=== PATIENT | male | born 2000 | race Hispanic/Latino ===

== ENCOUNTER 2020-08-14 20:01 | Emergency (ER) | payer SELFPAY ==
[~2020-08-14] VITALS: Ht 170.2 cm; Wt 83.0 kg
[2020-08-14] MEDS ORDERED: ONDANSETRON HCL INJ 2MG/ML 2ML 2 MG/ML VIAL IV STA (20:14)
[2020-08-14] MEDS ORDERED: MAGNESIUM/ALUMINUM/SIMETHICONE 30 ML UDC PO ONE (20:15)
[2020-08-14] MEDS ORDERED: LIDOCAINE VISC 2% SOLN 15 ML UDC PO ONE (20:15)
[2020-08-14] MEDS ORDERED: LIDOCAINE VISC 2% SOLN 15 ML UDC ONE (20:32)
[2020-08-14] MEDS ORDERED: ONDANSETRON HCL INJ 2MG/ML 2ML 2 MG/ML VIAL ONE (20:33)
[2020-08-14] MEDS ORDERED: MAGNESIUM/ALUMINUM/SIMETHICONE 30 ML UDC ONE (20:33)
[2020-08-14] MEDS ORDERED: ZOFRAN4 MG SL (21:45)
[2020-08-14] MEDS ORDERED: PREVACID30 MG PO (21:45)
== END 2020-08-14 22:08 | disposition home or self-care (01) ==
LOC: FSED 20:30
DX: R10.9 Unspecified abdominal pain (principal); R11.2 Nausea with vomiting, unspecified; F17.210 Nicotine dependence, cigarettes, uncomplicated
CPT/HCPCS: 74176; 99284; J2405

== ENCOUNTER 2024-06-14 10:45 | Observation (INO) | payer SELFPAY ==
[2024-06-14] VITALS (7 sets, daily range): BP systolic 116–154; BP diastolic 63–75; PULSE 65–96; RESP 16–18; TEMP 98–99.4; O2SAT 97–100
[~2024-06-14] VITALS: Ht 170.2 cm; Wt 83.0 kg
[~2024-06-14 10:45] MED LIST: BACITRACIN15 GM TOP; CILOXAN3.5 GM OS; PREVACID30 MG PO; ZOFRAN4 MG SL
[2024-06-14] MEDS: SODIUM CHLORIDE 0.9% 1000ML 1,000 ML IV ONE ×2 (11:12)
[2024-06-14] MEDS: ONDANSETRON HCL INJ 2MG/ML 2ML 2 MG/ML VIAL IV STA (11:12)
[2024-06-14] MEDS: KETOROLAC TROMETHAMINE 30 MG/ML VIAL IV STA (11:12)
[2024-06-14] MEDS ORDERED: KETOROLAC TROMETHAMINE 30 MG/ML VIAL ONE (11:14)
[2024-06-14] MEDS ORDERED: SODIUM CHLORIDE 0.9% 1000ML 1,000 ML ONE (11:14)
[2024-06-14] MEDS ORDERED: IOPAMIDOL 370 MG/ML 100 ML INFUS..BTL INJ ONE (12:00)
[2024-06-14] MEDS ORDERED: FENTANYL CITRATE/PF 100MCG/2 ML INJ ONE (12:31)
[2024-06-14] MEDS ORDERED: Morphine 10mg syringe 10 MG/ML INJ ONE (12:31)
[2024-06-14] MEDS ORDERED: PIPERACILLIN/TAZOBACTAM 3.375 GM VIAL ONE (12:44)
[2024-06-14] MEDS ORDERED: SODIUM CHLORIDE 0.9% 100 ML ONE (12:44)
[2024-06-14] MEDS ORDERED: BUPIVACAINE HCL 0.5% INJ 30 ML VIAL INJ ONE (15:38)
[2024-06-14] MEDS ORDERED: NO HOME MEDS (16:44)
[2024-06-14] MEDS ORDERED: SUGAMMADEX SODIUM 200 MG/2 ML VIAL IV ONE (16:51)
[2024-06-14] MEDS: Morphine 4mg INJECTION 4 MG/ML INJ IV PRN (18:49)
[2024-06-15 00:54] VITALS: BP_SYST 115; BP_SYST 124; BP_DIAS 65; BP_DIAS 81; PULSE 115; PULSE 80; RESP 16; RESP 20; TEMP 98; TEMP 98.4; O2SAT 100; O2SAT 99
[2024-06-15 06:27] VITALS: BP 128/61; PULSE 82; RESP 19; TEMP 98.2; O2SAT 99
[2024-06-15 08:18] VITALS: BP 129/55; PULSE 69; RESP 18; TEMP 98.4; O2SAT 98
[2024-06-15 08:29] VITALS: BP 129/55; PULSE 69; RESP 18; TEMP 98.4; O2SAT 100
[2024-06-15] MEDS: ONDANSETRON HCL INJ 2MG/ML 2ML 2 MG/ML VIAL IV PRN (09:02)
[2024-06-15 12:17] VITALS: BP 146/62; PULSE 97; RESP 19; TEMP 98.6; O2SAT 97
[2024-06-15 14:43] LABS: BASOPHILS % 0.2 % (0.0-1.0); EOSINOPHILS % 0.2 % (0.0-6.0); HEMATOCRIT 41.7 % (38.2-49.6); HEMOGLOBIN 13.7 g/dL (14.0-18.0); LYMPHOCYTES # (AUTO) 2.1 (1.0-3.2); LYMPHOCYTES % 10.4 % (18.0-39.1); MEAN CORPUSCULAR HEMOGLOBIN 30.8 pg (28-32); MEAN CORPUSCULAR HGB CONC 32.9 g/dL (31-35); MEAN CORPUSCULAR VOLUME 93.7 fL (81-99); MONOCYTES # (AUTO) 1.2 (0.2-0.8); MONOCYTES % 5.9 % (4.4-11.3); NEUTROPHILS # (AUTO) 16.3 (2.1-6.9); NEUTROPHILS % 82.8 % (38.7-80.0); PLATELET COUNT 248 x10e3/uL (140-360); RED BLOOD COUNT 4.45 x10e6/uL (4.3-5.7); RED CELL DISTRIBUTION WIDTH 12.3 % (11.7-14.4); WHITE BLOOD COUNT 19.65 x10e3/uL (4.8-10.8)
[2024-06-15 15:00] LABS: ALBUMIN 3.8 g/dL (3.5-5.0); ALBUMIN/GLOBULIN RATIO 1.2 (0.8-2.0); BILIRUBIN,TOTAL 0.8 mg/dL (0.2-1.2); CALCIUM 9.6 mg/dL (8.4-10.2); CREATININE, SERUM 0.98 mg/dL (0.72-1.25)
[2024-06-15] MEDS ORDERED: ACETAMINOPHEN-1 EAC4 PO (15:27)
[2024-06-15] MEDS ORDERED: ONDANSETRON ODT4 MG PO (15:27)
[2024-06-15] MEDS ORDERED: BACTRIM DS TAB1 EACH PO (15:27)
[2024-06-15 16:46] VITALS: BP 137/55; PULSE 86; RESP 19; TEMP 98.8; O2SAT 100
== END 2024-06-15 15:52 | disposition home or self-care (01) ==
LOC: FSED 10:57 → ERHOLD 12:43 → MED/SURG3 14:00
PROVIDERS: ADMIT Internal Medicine; ATTEND Internal Medicine
DX: K35.80 Unspecified acute appendicitis (principal); S05.02XA Injury of conjunctiva and corneal abrasion without foreign body, left eye, initial encounter; X58.XXXA Exposure to other specified factors, initial encounter
CPT/HCPCS: 36415; 44970; 74177; 80053 ×2; 81003; 85025 ×2; 88304; 99284; G0378 ×2; J1885; J2270 ×3; J2405 ×2; J2543; J3010; J7030; J7050; Q9967

== ENCOUNTER 2024-07-31 20:55 | Emergency (ER) | payer SELFPAY ==
[~2024-07-31] VITALS: Ht 167.6 cm; Wt 90.7 kg
[~2024-07-31 20:55] MED LIST changes: +ACETAMINOPHEN-1 EAC4 PO; +BACTRIM DS TAB1 EACH PO; +NO HOME MEDS; +ONDANSETRON ODT4 MG PO
[2024-07-31 21:09] VITALS: PULSE 87; RESP 18; TEMP 97.9
[2024-07-31] MEDS ORDERED: ULTRAM 50MG50 MG PO (21:20)
[2024-07-31] MEDS ORDERED: AZITHROMYCIN250 MG PO (21:20)
[2024-07-31 21:30] VITALS: BP 131/60; PULSE 87; RESP 18; TEMP 97.9; O2SAT 97
== END 2024-07-31 21:30 | disposition home or self-care (01) ==
LOC: FSED 21:00
DX: H66.92 Otitis media, unspecified, left ear (principal); H61.21 Impacted cerumen, right ear
CPT/HCPCS: 99282

== ENCOUNTER 2024-11-04 12:18 | Emergency (ER) | payer SELFPAY ==
[~2024-11-04] VITALS: Ht 167.6 cm; Wt 90.7 kg
[~2024-11-04 12:18] MED LIST changes: +AZITHROMYCIN250 MG PO; +ULTRAM 50MG50 MG PO
[2024-11-04 12:25] VITALS: PULSE 87; RESP 18; TEMP 98; O2SAT 99
[2024-11-04] MEDS: DIPHTH,PERTUSS(ACELL),TET VAC 0.5 ML SYRINGE IM ONE (13:33)
== END 2024-11-04 13:34 | disposition home or self-care (01) ==
LOC: FSED 12:21
DX: S61.210A Laceration without foreign body of right index finger without damage to nail, initial encounter (principal); W26.8XXA Contact with other sharp object(s), not elsewhere classified, initial encounter; Y92.89 Other specified places as the place of occurrence of the external cause
CPT/HCPCS: 99283